=== PATIENT | female | born 1995 | race Caucasian/White ===

== ENCOUNTER 2018-02-06 20:14 | Emergency (ER) | payer OTHER ==
[2018-02-06 20:33] VITALS: BP 113/74
--- NOTE | 2018-02-06 20:50 | UC ---
Lower Extremity/Ankle HPI - HPI Summary HPI Summary: twisted left ankle playing feild hockey today medial and lateral pain---no foot or leg pain---unable to weight bear-- - History of Current Complaint Chief Complaint: UCLowerExtremity Stated Complaint: FOOT INJURY Time Seen by Provider: 02/06/18 20:44 Hx Obtained From: Patient Hx Last Menstrual Period: now ?: No Onset/Duration: Sudden Onset Pain Intensity: 7 Pain Scale Used: 0-10 Numeric Aggravating Factor(s): Standing, Ambulation Alleviating Factor(s): Rest, OTC Meds Able to Bear Weight: No - Allergies/Home Medications Allergies/Adverse Reactions: Allergies Allergy/AdvReac Type Severity Reaction Status Date / Time No Known Allergies Allergy Verified 02/06/18 20:34 Home Medications: Home Medications Acetaminophen TAB* [Tylenol TAB*] 3 tab PO DAILY 02/06/18 [History Confirmed ] Norethindr/Eth Estradiol(Nf) [Lo Loestrin Fe (NF)] 1 tab PO DAILY 02/06/18 [ History Confirmed 02/06/18] Omeprazole CAP* [Prilosec CAP* 20 MG] 1 tab PO DAILY 02/06/18 [History Confirmed 02/06/18] PMH/Surg Hx/FS Hx/Imm Hx Previously Healthy: Yes - gastroparesis - Surgical History Surgical History: None - Family History Known Family History: Positive: None - Social History Occupation: Student Lives: Dormitory/Roommates Alcohol Use: Occasionally Substance Use Type: None Smoking Status (MU): Never Smoked Tobacco Review of Systems Constitutional: Negative Skin: Negative Eyes: Negative ENT: Negative Respiratory: Negative Cardiovascular: Negative Gastrointestinal: Negative Genitourinary: Negative Motor: Negative Neurovascular: Negative Musculoskeletal: Arthralgia - left medial and lateral ankle Neurological: Negative Psychological: Negative Is Patient Immunocompromised?: No All Other Systems Reviewed And Are Negative: Yes Physical Exam Triage Information Reviewed: Yes Appearance: Well-Appearing, No Pain Distress, Well-Nourished Vital Signs: Initial Vital Signs Temp 98.8 F 02/06/18 20:30 Pulse 106 02/06/18 20:30 Resp 18 02/06/18 20:30 BP 113/74 02/06/18 20:30 Pulse Ox 99 02/06/18 20:30 Vital Signs Reviewed: Yes Eye Exam: Normal Eyes: Positive: Conjunctiva Clear ENT Exam: Normal ENT: Positive: Normal ENT inspection, Hearing grossly normal. Negative: Tonsillar exudate, Trismus, Hoarse voice Dental Exam: Normal Neck exam: Normal Neck: Positive: Supple, Nontender Respiratory Exam: Normal Respiratory: Positive: Chest non-tender, No respiratory distress, No accessory muscle use Cardiovascular Exam: Normal Cardiovascular: Positive: RRR, Pulses Normal, Brisk Capillary Refill Abdominal Exam: Normal Musculoskeletal Exam: Normal Musculoskeletal: Positive: Strength Intact, ROM Intact, Edema @ - medial and lateral left ankle Neurological Exam: Normal Neurological: Positive: Alert, Muscle Tone Normal Psychological Exam: Normal Skin Exam: Normal Diagnostics - Radiology No standard instances Xray Interpretation: No Acute Changes Radiology Interpretation Completed By: ED Physician Lower Extremity Course/Dx - Course Course Of Treatment: jonny, cam, crutches, rice, ibuprofen follow with sports medicine in 3 days - Differential Dx/Diagnosis Provider Diagnoses: ankle sprain (L) Discharge - Sign-Out/Discharge Documenting (check all that apply): Patient Departure All imaging exams completed and their final reports reviewed: No - Discharge Plan Condition: Stable Disposition: HOME Patient Education Materials: Ibuprofen (By mouth), Ankle Sprain (ED), Crutch Instructions (ED), R.I.C.E. Treatment (ED) Referrals: Chasity Portillo MD [Medical Doctor] - 3 Days - Billing Disposition and Condition Condition: STABLE Disposition: Home
--- NOTE | 2018-02-07 08:04 | RAD ---
Indication: Predominant lateral LEFT ankle pain following injury. Comparison: No relevant prior exams available on the [facility] [place]ACS for comparison. Technique: AP, mortise, and lateral views LEFT ankle. Report: Normal articular alignment. No fracture or osteochondral lesion evident. Unremarkable soft tissue contours. IMPRESSION: #. Negative exam. R0
--- NOTE | 2018-02-07 08:59 | UC ---
- Progress Note Progress Note: Patient Name: TERRI NGUYEN Medical Record#: [id number] Ordering Physician: Reva Jessica NP Acct.#: [id number] : 1995 Age: 22 Sex: F Location: [facility] Exam Date: 02/06/182047 ADM Status: DEP ER Order Information: ANKLE LEFT 3+VWS Accession Number: [id number] CPT: 73458 Indication: Predominant lateral LEFT ankle pain following injury. Comparison: No relevant prior exams available on the [facility] PACS for comparison. Technique: AP, mortise, and lateral views LEFT ankle. Report: Normal articular alignment. No fracture or osteochondral lesion evident. Unremarkable soft tissue contours. IMPRESSION: #. Negative exam. R0 <Electronically signed by Seamus Sanchez MD in OV> 02/07/18800 Dictated By: Seamus Sanchez MD Dictated Date/Time: 02/07/18800 Transcribed Date/Time: 02/07/18799 Copy to: CC:Michaela Allen MD; Reva Jessica NP; No Primary Care Phys,NOPCP Imaging - [facility] Imaging - [facility] [address] [address] ph ([phone]) ph ([phone]) ph ([phone]) This report is only to be considered final once signed by the Provider(s) as displayed in the "<Electronically Signed by >" field (s). Absence of a signature indicates the report is in a draft status and still needs to be finalized. In the event this document was created by someone other than the signing Provider, the individual initiating the document will be listed in the "Entered by:" or "Dictated by:" steven. 1 of 1 Discharge - Sign-Out/Discharge Documenting (check all that apply): Post-Discharge Follow Up All imaging exams completed and their final reports reviewed: Yes - Discharge Plan Condition: Stable Disposition: HOME Patient Education Materials: Ibuprofen (By mouth), Ankle Sprain (ED), Crutch Instructions (ED), R.I.C.E. Treatment (ED) Referrals: Chasity Portillo MD [Medical Doctor] - 3 Days - Billing Disposition and Condition Condition: STABLE Disposition: Home
== END 2018-02-06 21:50 | disposition home or self-care (01) ==
LOC: UCEAST 20:14
DX: S93.402A Sprain of unspecified ligament of left ankle, initial encounter (principal); X50.1XXA Overexertion from prolonged static or awkward postures, initial encounter; Y93.65 Activity, lacrosse and field hockey; Y92.328 Other athletic field as the place of occurrence of the external cause; K31.84 Gastroparesis
CPT/HCPCS: 99213; G0463